=== PATIENT | female | born 1945 | race Two or more races ===

== ENCOUNTER 2024-08-28 16:13 | Emergency (ER) | payer OTHER, MEDICAID ==
[~2024-08-28] VITALS: Ht 152.4 cm; Wt 78.9 kg
[2024-08-28 16:14] VITALS: TEMP 98.3
[2024-08-28 16:20] VITALS: BP 129/99; O2SAT 97
[2024-08-28] MEDS ORDERED: TDAP [DIPH/PERTUSSIS/TET] 0.5 ML VIAL IM ONE (16:35)
[2024-08-28] MEDS: TDAP [DIPH/PERTUSSIS/TET] 0.5 ML VIAL IM ONE (17:25)
== END 2024-08-28 20:13 ==
LOC: ER 16:18
DX: S00.83XA Contusion of other part of head, initial encounter (principal); E11.9 Type 2 diabetes mellitus without complications; G30.9 Alzheimer's disease, unspecified; I10 Essential (primary) hypertension; Z86.73 Personal history of transient ischemic attack (TIA), and cerebral infarction without residual deficits; Z88.0 Allergy status to penicillin; Z88.6 Allergy status to analgesic agent; W01.0XXA Fall on same level from slipping, tripping and stumbling without subsequent striking against object, initial encounter; Y93.89 Activity, other specified; Y92.89 Other specified places as the place of occurrence of the external cause; Y99.8 Other external cause status
CPT/HCPCS: 70450-TC; 72125-TC; 90715